=== PATIENT | female | born 1990 | race Hispanic/Latino ===

== ENCOUNTER 2019-06-30 19:04 | Observation (INO) | payer OTHER ==
[~2019-06-30] VITALS: Ht 165.1 cm; Wt 94.8 kg
[2019-06-30 20:30] LABS: APPEARANCE,URINE Clear (CLEAR); BILIRUBIN,URINE Negative (NEGATIVE); COLOR,URINE Yellow (YELLOW); GLUCOSE, URINE (UA) Negative (NEGATIVE); KETONES,URINE Negative (NEGATIVE); LEUKOCYTE ESTERASE ,URINE Trace (NEGATIVE); NITRATE,URINE Negative (NEGATIVE); OCCULT BLOOD,URINE Negative (NEGATIVE); PH,URINE 5.5 (5.0-8.0); PROTEIN,URINE Negative (NEGATIVE)
[2019-06-30 20:33] VITALS: BP 124/68
[2019-06-30 20:51] LABS: BACTERIA,URINE Few /HPF (None Seen)
== END 2019-06-30 21:20 | disposition home or self-care (01) ==
LOC: EDH 19:04 → LDH 19:25
DX: O36.8130 Decreased fetal movements, third trimester, not applicable or unspecified (principal); O26.893 Other specified pregnancy related conditions, third trimester; M54.9 Dorsalgia, unspecified; O99.343 Other mental disorders complicating pregnancy, third trimester; F32.9 Major depressive disorder, single episode, unspecified; Z3A.36 36 weeks gestation of pregnancy
CPT/HCPCS: 59025; 81001; 99284; G0378

== ENCOUNTER 2019-07-12 05:10 | Inpatient (IN) | payer SELFPAY ==
[~2019-07-12] VITALS: Ht 165.1 cm; Wt 96.6 kg
[2019-07-12] MEDS ORDERED: LACTATED RINGERS 1000ML 1,000 ML IV PRN (05:16)
[2019-07-12] MEDS ORDERED: EPHEDRINE SULFATE 50 MG/ML AMPULE IVP PRN (05:30)
[2019-07-12] MEDS ORDERED: NALOXONE HCL 0.4 MG/1 ML ML IV PRN (05:30)
[2019-07-12] MEDS ORDERED: LACTATED RINGERS 500 ML 500 ML IV PRN (05:30)
[2019-07-12] MEDS ORDERED: ROPIVACAINE 0.2% 100ML VIAL 100 ML EP SCH (05:30)
[2019-07-12] MEDS ORDERED: OXYTOCIN 10 USP UNITS/ML 20 UNIT in LACTATED RINGERS 1000ML 1,000 ML IV SCH (05:30)
[2019-07-12 05:51] LABS: APPEARANCE,URINE Clear (CLEAR); BILIRUBIN,URINE Negative (NEGATIVE); COLOR,URINE Yellow (YELLOW); GLUCOSE, URINE (UA) Negative (NEGATIVE); KETONES,URINE Negative (NEGATIVE); LEUKOCYTE ESTERASE ,URINE Trace (NEGATIVE); NITRATE,URINE Negative (NEGATIVE); OCCULT BLOOD,URINE Negative (NEGATIVE); PH,URINE 6.5 (5.0-8.0); PROTEIN,URINE Negative (NEGATIVE); UROBILINOGEN,URINE 0.2 mg/dL (0.2-1.0)
[2019-07-12] MEDS ORDERED: OXYTOCIN-LR 20 UNITS/1000 ML 1,000 ML IV ONE (06:09)
[2019-07-12 06:11] LABS: BACTERIA,URINE Rare /HPF (None Seen); RBC,URINE 0-1 /HPF (0-1)
[2019-07-12 06:14] LABS: HEMATOCRIT 32.1 % (36-48); MEAN CORPUSCULAR HEMOGLOBIN 27.4 pg (27.0-33.0); MEAN CORPUSCULAR HGB CONC 33.4 g/dL (32.0-36.0); MEAN CORPUSCULAR VOLUME 82.1 fL (79-99); PLATELET COUNT (AUTO) 234 K/uL (130-400); RED BLOOD CELL COUNT(AUTO) 3.91 MIL/uL (4.00-5.50); RED CELL DISTRIBUTION WIDTH 13.9 % (11.0-15.5)
[2019-07-12] MEDS ORDERED: MEPERIDINE-PF 50 MG/ML SYG IVP PRN (08:00)
[2019-07-12] MEDS ORDERED: PROMETHAZINE HCL 25 MG/ML 1ML AMPULE IM PRN (08:00)
[2019-07-12] MEDS ORDERED: OXYTOCIN-LR 20 UNITS/1000 ML 1,000 ML IV SCH ×2 (08:15→10:15)
[2019-07-12] MEDS ORDERED: FENTANYL CITRATE PF 50 MCG/1 ML 2ML VIAL ONE (08:37)
[2019-07-12] MEDS ORDERED: LANOLIN 30GM OINTMENT TP PRN (10:15)
[2019-07-12] MEDS ORDERED: DIPH,PERTUSS(ACELL),TET VAC/PF 0.5 ML VIAL IM PRN (10:15)
[2019-07-12] MEDS ORDERED: BENZOCAINE/LANOLIN/ALOE VERA 60 ML AEROSOL TP PRN (10:15)
[2019-07-12] MEDS ORDERED: WITCH HAZEL 1 PAD TP PRN (10:15)
[2019-07-12] MEDS: SERTRALINE HCL 50 MG TABLET PO SCH (11:31)
[2019-07-12] MEDS: IBUPROFEN 600 MG TABLET PO PRN ×2 (11:35→18:25)
[2019-07-12 13:45] VITALS: BP 125/75
[2019-07-12] MEDS ORDERED: PNV11TAB5 PO (15:14)
[2019-07-12] MEDS ORDERED: SERT25TA PO (15:14)
[2019-07-12 16:00] VITALS: BP 135/90
[2019-07-12] MEDS: ACETAMINOPHEN-CODEINE 300/30MG TAB PO PRN ×2 (16:04→21:13)
[2019-07-12 19:22] VITALS: BP 127/78
--- NOTE | 2019-07-12 19:57 | NUR ---
ACTIVITY: Patient walking outside the lobby wanted to visit her baby in the nursery. Assessment done claimed, " I have little cramping but tolerable." Plan of care discussed with patient verbalizes understanding. Patient went to the nursery accompanied by .
[2019-07-12] MEDS: DOCUSATE SODIUM 100 MG CAP PO SCH (21:11)
[2019-07-12 23:16] VITALS: BP 142/59
[2019-07-13] MEDS: IBUPROFEN 600 MG TABLET PO PRN ×2 (00:50→09:04)
[2019-07-13 03:14] VITALS: BP 114/66
[2019-07-13] MEDS: ACETAMINOPHEN-CODEINE 300/30MG TAB PO PRN (04:30)
[2019-07-13 07:11] VITALS: BP 123/74
[2019-07-13] MEDS: DOCUSATE SODIUM 100 MG CAP PO SCH (09:04)
--- NOTE | 2019-07-13 11:00 | NUR ---
DR. SMALL ROUNDED AND DISCHARGED PATIENT TO HOME ONCE BABY IS DISCHARGED. PATIENT IS STABLE AND DENIES ANY PROBLEMS AT THIS TIME.
[2019-07-13 11:20] VITALS: BP 135/75
[2019-07-13] MEDS: SERTRALINE HCL 50 MG TABLET PO SCH (11:34)
--- NOTE | 2019-07-13 11:50 | NUR ---
KORTNEY ABREU IN TO SEE PATIENT FOR HX OF PPD AND ANXIETY. PATIENT WAS CLEARED FOR DISCHARGE.
--- NOTE | 2019-07-13 12:27 | NUR ---
cm note met with patient and states resides at home with spouse, pt independent with adls and self, care, pt has 3 children at home ages 7,5,1, and now baby. pt states she has been under care of dr Ramirez, and did get depression during the due to multiple issues going on at home including her father being diagnosed with CA, but states feels a lot better, she started her medicaitons ordered by dr Ramirez, started on prozac, but was changed by md to Zoloft, states she takes exactly as prescribed, was told by md, she will try weaning her off meds after her , and pt states she will adhere to all instructions by md, has not had any feelings of depression, and feels much improved, informed pt importance of following med regimen and did provide her with resources for depression if needed and #s to call , and to noify md for any changes in mood or behavior and to followup with her md as needed. . pt verbalizes understanding, and states has good family support, her parents, and also spouse is very supportive of her and all will be assisting her at home with her children. updated primary nurse faisal, and nursery nurse Pati.
--- NOTE | 2019-07-13 14:30 | NUR ---
PATIENT WAS GIVEN DISCHARGE INSTRUCTIONS AND SCRIPT FOR MOTRIN GIVEN AND INSTRUCTED ON DOSAGE AND FREQUENCY OF MEDICATION. PATIENT STABLE AND DENIES PAIN.
--- NOTE | 2019-07-13 14:40 | NUR ---
PATIENT WAS TAKEN VIA W/C TO [facility]ILY [facility] CARRYING BABY IN ARMS. PATIENT STABLE AND IS CALM AND APPEARS COMFORTABLE.
[2019-07-15 06:09] LABS: HEPATITIS Bs ANTIGEN SCREEN P Negative (Negative)
== END 2019-07-13 14:40 | disposition home or self-care (01) | DRG 807 ==
LOC: LDH 05:10 → WSH 13:39
PROC: 10E0XZZ Delivery of Products of Conception, External Approach (ICD-10-PCS; principal; 2019-07-12)
PROC: 10907ZC Drainage of Amniotic Fluid, Therapeutic from Products of Conception, Via Natural or Artificial Opening (ICD-10-PCS; 2019-07-12)
PROC: 3E033VJ Introduction of Other Hormone into Peripheral Vein, Percutaneous Approach (ICD-10-PCS; 2019-07-12)
PROC: 3E0R3BZ Introduction of Anesthetic Agent into Spinal Canal, Percutaneous Approach (ICD-10-PCS; 2019-07-12)
PROC: 00HU33Z Insertion of Infusion Device into Spinal Canal, Percutaneous Approach (ICD-10-PCS; 2019-07-12)
PROC: 3E0234Z Introduction of Serum, Toxoid and Vaccine into Muscle, Percutaneous Approach (ICD-10-PCS; 2019-07-12)
DX: O80 Encounter for full-term uncomplicated delivery (principal); Z37.0 Single live birth; Z3A.39 39 weeks gestation of pregnancy; Z23 Encounter for immunization
CPT/HCPCS: 36415; 81001; 85027; 86592; 86850; 86900; 86901; 87340; 90715; G0378; J2590; J2795; J3010; J7120

== ENCOUNTER 2021-10-05 06:22 | Day surgery (SDC) | payer OTHER ==
[2021-10-04 11:46] LABS: BASOPHILS % (AUTO) 0.8 % (0.0-5.0); EOSINOPHILS % (AUTO) 1.9 % (0.0-8.0); HEMATOCRIT 44.1 % (36-48); LYMPHOCYTES % (AUTO) 28.5 % (21.0-51.0); MEAN CORPUSCULAR HEMOGLOBIN 29.6 pg (27.0-33.0); MEAN CORPUSCULAR HGB CONC 33.3 g/dL (32.0-36.0); MEAN CORPUSCULAR VOLUME 88.7 fL (79-99); MONOCYTES % (AUTO) 5.1 % (3.0-13.0); NEUTROPHILS % (AUTO) 63.3 % (40.0-77.0); PLATELET COUNT (AUTO) 292 K/uL (130-400); RED BLOOD CELL COUNT(AUTO) 4.97 MIL/uL (4.00-5.50); RED CELL DISTRIBUTION WIDTH 12.5 % (11.0-15.5); WHITE BLOOD COUNT (AUTO) 7.3 K/uL (4.8-10.8)
[~2021-10-05] VITALS: Ht 165.1 cm; Wt 82.8 kg
[2021-10-05] VITALS (16 sets, daily range): BP systolic 95–131; BP diastolic 46–79
[~2021-10-05 06:22] MED LIST: PNV11TAB5 PO
[2021-10-05] MEDS ORDERED: LACTATED RINGERS 1000ML 1,000 ML IV ONE (06:49)
[2021-10-05] MEDS ORDERED: BUPIVACAINE/PF 0.5% 30ML VIAL ONE (07:09)
[2021-10-05] MEDS ORDERED: MIDAZOLAM HCL 1 MG/ML 2ML VIAL ONE (07:31)
[2021-10-05] MEDS ORDERED: LIDOCAINE PF 100MG/5ML (2%) SYRINGE 5ML ONE (07:31)
[2021-10-05] MEDS ORDERED: SUCCINYLCHOLINE 200MG/10ML SYR ONE (07:31)
[2021-10-05] MEDS ORDERED: PROPOFOL 10 MG/ML 20ML VIAL IV ONE (07:32)
[2021-10-05] MEDS ORDERED: FENTANYL CITRATE PF 50 MCG/1 ML 2ML VIAL ONE ×2 (07:32→07:56)
[2021-10-05] MEDS ORDERED: ROCURONIUM 10MG/1ML SYR 10 MG/ML ML ONE (07:32)
[2021-10-05] MEDS ORDERED: ONDANSETRON 4MG INJ ONE (07:54)
[2021-10-05] MEDS ORDERED: DEXAMETHASONE SOD PHOSPHATE 10MG/ML 1ML VIAL ONE (07:54)
[2021-10-05] MEDS ORDERED: CALDOLOR 800MG+NS 250ML 250 ML IV PRN (08:00)
[2021-10-05] MEDS ORDERED: CEFAZOLIN SODIUM 1 GM VIAL IVP ONE (08:00)
[2021-10-05] MEDS ORDERED: GLYCOPYRROLATE 1 MG/5 ML SYRINGE ONE (08:10)
[2021-10-05] MEDS ORDERED: NEOSTIGMINE 5MG/5ML SYR IV ONE (08:10)
== END 2021-10-05 10:20 | disposition home or self-care (01) ==
LOC: DAH 06:22
PROVIDERS: ATTEND Obstetrics & Gynecology
DX: Z30.2 Encounter for sterilization (principal); Z20.822 Contact with and (suspected) exposure to COVID-19; F32.9 Major depressive disorder, single episode, unspecified; N85.4 Malposition of uterus; Z79.899 Other long term (current) drug therapy
CPT/HCPCS: 36415; 58670; 84703; 85025; 86850; 86900; 86901; 87635; A4215; A4221; A4222; A4223; A4335 ×2; A4351; A4510; A4600; A4663; A6260; C1769 ×2; C9803; G0168; J0330; J0690; J1100; J1741; J2001; J2250; J2405; J2704; J2710; J3010 ×2; J3490 ×2; J7030; J7120